=== PATIENT | male | born 1950 | race Caucasian/White ===

== ENCOUNTER 2021-01-19 01:55 | Outpatient (CLI) | payer MEDICARE, BC, SELFPAY ==
--- NOTE | 2021-01-19 07:00 | DI.US_ITS ---
Exam(s) US THYROID EXAM: US THYROID CLINICAL HISTORY: thyroid nodule...assess for [facility],E04.1. TECHNIQUE: Ultrasound thyroid performed using standard protocol. COMPARISON: No exams were available for comparison FINDINGS: There is a single large dominant nodule in the right lobe. There is a single small cystic structure in the left lobe. Details as below.... RIGHT THYROID LOBE: Measures 2.2 cm AP x 2.2 cm wide x 4 cm craniocaudal With respect to the nodule in the right lobe, it occupies a large part of the right lobe. Size: Measures 2.9 x 2.0 x 1.7 cm Composition: Mixed [id number] point Echogenicity: The solid components are I so and slightly hyperechoic compared to the surrounding pare nchyma-1 point Shape: Slightly taller than wider-3 points Margin: Smooth- 0 points Echogenic Foci: None-0 points Total Points for this nodule: 5 ACR Ti-Rads Category: TR4 ISTHMUS: Normal thickness. There are no nodules in the isthmus. LEFT THYROID LOBE: Measures 1.5 cm AP x 1.3 wide x 4.0 cm craniocaudal With respect of the solitary small benign appearing cyst in the inferior aspect of the left lobe... Size: Measures 0.3 x 0.2 x 0.2 cm Composition: Cystic-0 points Echogenicity: Anechoic-0 points Shape: Not taller than wider-0 points Margin: Smooth-0 points Echogenic Foci: Single peripheral calcification-2 points Total points for this nodule: 2 ACR Ti-Rads Category: 2 LYMPH NODES: Small bilateral benign-appearing lymph nodes noted. IMPRESSION: 1. There is a mixed solid cystic nodule occupying a large part of the right lobe, as described above. Total points for this nodule =5 TiRads: 4. Given that the maximum size of this nodule is greater than 1.5 cm (2.9 cm) it should unde rgo ultrasound-guided FNA with sampling of both the solid and fluid components. 2. Solitary small benign-appearing finding in the left lobe as described above. This does not requir e FNA 3. There is no significant lymphadenopathy. DATA REPOSITORY:
== END 2021-01-19 02:15 ==
PROVIDERS: PCP Family Medicine; Visit Provider Otolaryngology
DX: E04.1 Nontoxic single thyroid nodule (principal)
CPT/HCPCS: 76536